=== PATIENT | male | born 1960 | race African-American/Black ===

== ENCOUNTER 2025-07-06 10:25 | Day surgery (SDC) | payer OTHER ==
[2025-07-02 11:57] VITALS: BMI 28.7
[2025-07-06] MEDS ORDERED: Ketorolac Tromethamine 30 MG (1 mL) VIAL ONE (11:14)
[2025-07-06] MEDS ORDERED: Acetaminophen 500 MG TAB ONE (11:14)
[2025-07-06] MEDS ORDERED: PROPOFOL 40 ML ONE (12:44)
[2025-07-06] MEDS ORDERED: Ondansetron PF 4 MG/2 ML Vial ONE (12:44)
[2025-07-06] MEDS ORDERED: Lidocaine 1% PF 5 ML VIAL ONE (12:44)
[2025-07-06] MEDS ORDERED: Bupivacaine/Epinephrine 0.25% 30 ML VIAL ONE (12:54)
[2025-07-06] MEDS ORDERED: Sevoflurane 250 ML INH ANEST BOTTLE ONE (12:55)
[2025-07-06] MEDS ORDERED: CEFAZOLIN 1 GM VIAL ONE (13:14)
[2025-07-06] MEDS ORDERED: PHENYLEPHRINE-NS 100 MCG/ML 10 ML SYRINGE ONE (13:54)
== END 2025-07-06 15:27 | disposition home or self-care (01) ==
LOC: CSHSDC 10:25
PROVIDERS: ATTEND Specialist
PROC: 0JH60WZ Insertion of Totally Implantable Vascular Access Device into Chest Subcutaneous Tissue and Fascia, Open Approach (ICD-10-PCS; principal; 2025-07-06)
DX: C61 Malignant neoplasm of prostate (principal)
CPT/HCPCS: 71045; C1788; J0690; J1100; J1642; J1885; J2405; J2704; J3010